=== PATIENT | female | born 1960 | race Caucasian/White ===

== ENCOUNTER 2022-02-27 12:11 | Emergency (ER) | payer OTHER ==
[~2022-02-27] VITALS: Ht 167.6 cm; Wt 70.3 kg
[2022-02-27 12:18] VITALS: BP_SYST 187
--- NOTE | 2022-02-27 12:18 | NUR ---
Patient to ER bed 07 to gown for evaluation. Side rails up.
--- NOTE | 2022-02-27 12:20 | NUR ---
Pt brought by ambulance, A&Ox4, pt presents to ER with headache and back pain post fall, pt was putting dishes away and fell backwards, possible KO, skin pink and warm, cap refill <3, VSS, will cont to monitor.
--- NOTE | 2022-02-27 13:10 | NUR ---
SABINA Eldridge at bedside examining patient.
--- NOTE | 2022-02-27 13:10 | NUR ---
Matthew chao in [facility] - 02/27/22 at 1905 by JANINENFAYE PT bears weight unsteady stance. Provided assistance to [facility].
[2022-02-27] MEDS ORDERED: SOM350 PO (14:23)
[2022-02-27] MEDS ORDERED: IBUP-1969 PO (14:23)
[2022-02-27 19:06] VITALS: BP_SYST 148
== END 2022-02-27 13:45 | disposition home or self-care (01) ==
LOC: SED 12:11
DX: S16.1XXA Strain of muscle, fascia and tendon at neck level, initial encounter (principal); S00.03XA Contusion of scalp, initial encounter; Z88.0 Allergy status to penicillin; Z79.899 Other long term (current) drug therapy; W08.XXXA Fall from other furniture, initial encounter; Y93.89 Activity, other specified; Y92.89 Other specified places as the place of occurrence of the external cause; Y99.8 Other external cause status
CPT/HCPCS: 70450-TC; 71045; 72125-TC; 76376; 99284